=== PATIENT | female | born 1945 | race Caucasian/White ===

== ENCOUNTER 2017-03-17 23:48 | Inpatient (IN) | payer MEDICARE, OTHER ==
[~2017-03-17] VITALS: Ht 152.4 cm; Wt 68.0 kg
[~2017-03-17 23:48] MED LIST: DEP250 PO; DEPAKOTE500 MG; KLO0.5 PO; OXCARBAZEPINE300 M1 PO; RIS1 PO; RISPERDAL0.5 MG; ZYP10 PO; ZYP5 PO
[2017-03-18 00:18] VITALS: Ht 152.4 cm; Wt 68.0 kg
--- NOTE | 2017-03-18 00:42 | NUR ---
PT BIB AMBULANCE FOR MEDICAL CLEARANCE. PER MEDIC, PT WAS REQUESTING TO GO TO [facility] FOR A PSYCH EVAL. MEDIC STATES THAT [place] [employer] WAS UNABLE TO CLEAR HER FOR A HOLD. PER MEDIC, WHEN PT WAS TAKEN TO [facility], THEY WOULD NOT TAKE PT AND INDICATED PT NEEDED A MEDICAL CLEARANCE.
[2017-03-18 01:13] LABS: BASOPHIL % 0.6 % (0-2); PLATELET COUNT 156 x10^3mcL (130-400)
[2017-03-18 01:16] LABS: CALCIUM 9.2 mg/dL (8.5-10.1); CARBON DIOXIDE 25.6 mmol/L (21-32); CHLORIDE SERUM 108 mmol/L (98-107); CREATININE SERUM 1.2 mg/dL (0.6-1.0); GFR1 47 mL/min; GLUCOSE SERUM 93 mg/dL (74-106); POTASSIUM SERUM 4.1 mmol/L (3.5-5.1); SODIUM SERUM 145 mmol/L (136-145)
[2017-03-18 01:20] LABS: RED CELL DISTRIBUTION WIDTH 15.5 % (11.5-14.5)
[2017-03-18 01:21] LABS: ALBUMIN 3.7 g/dL (3.4-5.0); ALKALINE PHOSPHATASE 147 U/L (46-116); ALT/SGPT 41 U/L (14-59); AST/SGOT 24 U/L (15-37); BILIRUBIN TOTAL 0.22 mg/dL (0.20-1.00); TOTAL PROTEIN, SERUM 7.7 g/dL (6.4-8.2)
[2017-03-18 01:48] LABS: UA SPECIFIC GRAVITY 1.015 (1.005-1.035); microscopic required? YES; urine erythrocyte NEGATIVE (NEGATIVE)
[2017-03-18 02:01] LABS: AMPHETAMINE QUAL UR NONE DETECTED (NEG <=1000)
--- NOTE | 2017-03-18 04:02 | NUR ---
PT SPEAKING WITH PSYCH VIA TELE
--- NOTE | 2017-03-18 04:30 | NUR ---
PT BREATHING EVEN AND UNLABORED, NO DISTRESS NOTED
--- NOTE | 2017-03-18 06:07 | NUR ---
PT RESTING, BREATHING EVEN AND UNLABORED. NO DISTRESS NOTED
--- NOTE | 2017-03-18 06:51 | NUR ---
MEDICATED PT PER E-MAR. PT TOLERATED
--- NOTE | 2017-03-18 08:05 | NUR ---
GAVE PT BREAKFAST TRAY
--- NOTE | 2017-03-18 10:03 | NUR ---
PT RESTING IN LOW POSITIONED BED, SIDE RAILS UP X2, PT GIVEN BLANKET. PT DENIES ANY NEEDS AT THIS TIME. PT TALKING AND CONVERSING, WITH RANDOM TOPICS AND RAMBLING.
--- NOTE | 2017-03-18 12:10 | NUR ---
PT SITTING UP IN LOW POSITIONED BED, SIDE RAILS UP X2. CALL LIGHT WITHIN REACH.
[2017-03-18 12:16] LABS: MAGNESIUM 2.2 mg/dL (1.8-2.4); PHOSPHOROUS 3.6 mg/dL (2.5-4.9)
[2017-03-18 12:17] LABS: CHOLESTEROL/HDL RATIO 1.7
[2017-03-18 12:28] LABS: FREE T4 0.92 ng/dL (0.76-1.46); FREE THYROXINE INDEX 2.4 ug/dL (1.4-4.5); T4(THYROXINE) 8.1 ug/dL (4.7-13.3)
[2017-03-18 12:50] LABS: T3 TOTAL 0.81 ng/mL
--- NOTE | 2017-03-18 13:05 | NUR ---
PT GIVEN LUNCH TRAY.
--- NOTE | 2017-03-18 14:37 | NUR ---
PT GONE FOR XRAY
--- NOTE | 2017-03-18 15:02 | NUR ---
PT ATE 100% OF LUNCH TRAY.
--- NOTE | 2017-03-18 16:14 | NUR ---
PT COVERING FACE WITH PAPERS, PT STATED "I DONT WANT TO SEE THE FOOTBALL GAME"
--- NOTE | 2017-03-18 16:43 | NUR ---
SOCIAL SERVICE NOTE: RECEIVED PHYSICIAN HERB THIS MORNING TO ASSIST WITH POSSIBLE PLAN. THE PT DOES NOT MEET [facility] BUT WANTED TX IN A VIOLUNTARY BASIS. FURTHER THE PHYSICIAN DID NOT FELE THE PT WAS SAFE AT TIME TO DISCHARGE HOME. I CONTACTED THE [facility] CALL CENTER ) WHO HAS MADE SEVERAL CALLS BUT HAVE NOT YET FOUND A BED. THEY ARE CURRENTLY ATTEMPTING TO GET A BED WITH [facility] BUT DO NOT HAVE THE CONFIRMED. I CALLED BOTH [facility] ([facility]) AND [facility]. [facility] CANNOT ACCEPT DUE TO PT'S INSURANCE. [facility] HAS NOT CONFIRMED IF ABLE TO ACCEPT. I PROVIDED THIS INFO TO THE ER NURSE. WILL CONTINUE TO FOLLOW NEEDED.
--- NOTE | 2017-03-18 19:01 | NUR ---
GAVE PT HX AND REPORT TO SYLVAIN FROM [facility]. INFORMED ME THAT SHE WILL LET HER NURSE REVIEW THE INFO AND WILL CALL BACK.
--- NOTE | 2017-03-18 19:10 | NUR ---
REPORT RECIEVED FROM [facility] SLOAN TO ASSUME CARE.
--- NOTE | 2017-03-18 19:11 | NUR ---
PER DR JEFFREY, AWAITING [facility] DECISION, IF PT DOES NOT GET ACCEPTED TO [facility], THEN PT SHOULD BE SENT TO [facility] IF PT IS MEDICALLY CLEARED.
--- NOTE | 2017-03-18 19:22 | NUR ---
PT RESTING ON GURNEY IN NO ACUTE DISTRESS, RESP E/U. VITALS UPDATED. BED IN LOW POSITION. CALL LIGHT WITHIN REACH. PT DENIES ANY THOUGHTS OF SELF HARM AT THIS TIME.
--- NOTE | 2017-03-18 20:02 | NUR ---
REPORT CALLED TO [facility] PEREZ TO ASSUME CARE.
--- NOTE | 2017-03-18 20:17 | NUR ---
PT TRANSFERRED ON FULL CM WITH DEEP BRINK AND EMT TO TELE UNIT.
[2017-03-18 20:39] VITALS: BP 180/151
--- NOTE | 2017-03-18 20:44 | NUR ---
RECEIVED PT FROM ED VIA CONSTANTIN. ORIENTED PT TO ROOM AND SURROUNDINGS. IV NOTED TO PATENT AND INTACT. TELE 17 PLACED ON PT READING NSR. INSTRUCTED PT ON THE USE OF CALL LIGHT FOR ASSISTANCE. ENDORSED PT TO PRIMARY NURSE ANA
--- NOTE | 2017-03-18 20:47 | NUR ---
RECIEVED PT FROM KO RN. PT AAOX2. RAMBLES AND SPEECH NOT APPROPRIATE FOR SITUATION. TELE #17. DENIES CP/PRESSURE. PULSES STRONG BILAT. NO EDEMA NOTED. CTA BILAT. DENIES SOB ON RA. BOWEL SOUNDS ACTIVE X4. ABLE TO VOID. AMBULATORY. SKIN CDI. NO PAIN INDICATED AT THIS TIME. IV TO LEFT HAND PATENT AND INTACT. BED IN LOWEST POSITION. CALL LIGHT WITHIN REACH. WILL CONTINUE TO MONITOR
--- NOTE | 2017-03-18 22:58 | NUR ---
PT RESTING PEACEFULLY IN BED. TOLERATED NIGHT MEDS WELL. RESPIRATIONS EVEN AND UNLABORED. IV INFUSING WELL.WILL CONTINUE TO MONITOR
[2017-03-18 23:22] VITALS: BP 109/51
--- NOTE | 2017-03-19 01:18 | NUR ---
PT RESTING PEACEFULLY IN BED. RESPIRATIONS EVEN AND UNLABORED. NO ACUTE DISTRESS NOTED. IV TO LEFT HAND PATENT AND INTACT. INFUSING WELL. BED IN LOWEST POSITION. CALL LIGHT WITHIN REACH. WILL CONTINUE TO MONITOR
[2017-03-19 05:10] VITALS: BP 101/51
[2017-03-19 06:02] LABS: BASOPHIL % 0.5 % (0-2); PLATELET COUNT 150 x10^3mcL (130-400)
--- NOTE | 2017-03-19 06:10 | NUR ---
PT RESTING PEACEFULLY IN BED. TOLERATED MORNING MEDICATIONS WELL. RESPIRATIONS EVEN AND UNLABORED. NO ACUTE DISTRESS NOTED. PT SPEECH REMAINS GARBLED AND NOT APPROPRIATE FOR SITUATION. IV TO LEFT HAND PATENT AND INTACT. INFUSING WELL. BED IN LOWEST POSITION. CALL LIGHT WITHIN REACH. WILL ENDORSE CARE TO ONCOMING SHIFT
[2017-03-19 06:24] LABS: CALCIUM 8.5 mg/dL (8.5-10.1); CREATININE SERUM 1.2 mg/dL (0.6-1.0); PHOSPHOROUS 3.3 mg/dL (2.5-4.9); POTASSIUM SERUM 4.7 mmol/L (3.5-5.1)
[2017-03-19 06:28] LABS: RED CELL DISTRIBUTION WIDTH 15.9 % (11.5-14.5)
--- NOTE | 2017-03-19 07:50 | NUR ---
RECIEVED PT. LETHARGIC MADE AWARE,HOLD ALL MEDS AT THIS TIME.CONT. IV FLUIDS ORDERED. NO ACUTE RESP. DISTRESS NOTED.ON 1:1 SITTER AT BEDSIDE HX OF SCHIZOPHRENIA ,BIPOLAR .WILL CONT. PLAN OF CARE.
--- NOTE | 2017-03-19 08:40 | NUR ---
DR. MORTON IN HERE MADE ROUNDS W/ OTHER MEDICAL STAFFS AND UPDATED PT. PLAN OF CARE.
[2017-03-19 08:47] VITALS: BP 104/53
[2017-03-19] MEDS ORDERED: ZES5 PO (10:26)
--- NOTE | 2017-03-19 10:45 | NUR ---
PT. AWAKENED AND ALERT AT THIS TIME C/O OF BEING HUNGRY ,BREAKFAST SERVED ATE WELL.PT. KEEP MUMBLES AND TALKING HERSELF ,CONFUSED ,WILL CONT. TO MONITOR PT.1:1 SITTER AT BEDSIDE.
[2017-03-19 12:00] VITALS: BP 104/53
[2017-03-19 12:53] VITALS: BP 111/62
--- NOTE | 2017-03-19 13:00 | NUR ---
PT. ATE LUNCH WELL,COOPERATIVE AND QUITE,DENIES ANY PAIN NO ACUTE DISTRESS NOTED.DR. DALTON HERE SEEN PT. W/ ORDERS OF TO DISCHARGE PT. TO PSYCH FACILITY IN [facility] ACCEPTING MD LYNN,REPORT GIVEN TO BURAK NURSE IN PSYCH FACILITY.
--- NOTE | 2017-03-19 16:06 | NUR ---
PT. DISCHARGE TO PSYCH FACILITY IN [facility] BY [facility]IA [facility] ,NO ACUTE DISTRESS NOTED.
== END 2017-03-19 16:06 | DRG 70 ==
LOC: ED 23:48 → DU 03-18 17:03
PROVIDERS: Emergency Medicine; ADMIT Family Medicine
DX: G93.49 Other encephalopathy (principal); N17.0 Acute kidney failure with tubular necrosis; E87.0 Hyperosmolality and hypernatremia; F31.9 Bipolar disorder, unspecified; E87.8 Other disorders of electrolyte and fluid balance, not elsewhere classified; D64.9 Anemia, unspecified; R80.9 Proteinuria, unspecified; Z91.14 Patient's other noncompliance with medication regimen
CPT/HCPCS: 83880; 84439; G0480; J7030; Q0092